=== PATIENT | male | born 2000 | race Caucasian/White ===

== ENCOUNTER 2020-10-23 14:42 | Emergency (ER) | payer OTHER, SELFPAY ==
[2020-10-23 15:10] VITALS: BP 116/70; PULSE 62; RESP 18; TEMP 37.1; O2SAT 98; BMI 21.9
--- NOTE | 2020-10-23 15:58 | ED.SKABFB ---
HPI - Skin/Abscess/Foreign Bdy General Chief complaint: Skin/Abscess/Foreign Body Stated complaint: rash Time Seen by Provider: 10/23/20 15:58 History of Present Illness HPI narrative: patient complains of a rash to his body mostly the chest and back but the arms as well which started 2 years ago and has spread over past 2 years, it does not itch it does not hurt and there are no other associated symptoms Related Data Previous Rx's Medication Instructions Recorded ketoconazole 1 appl TOPICAL BID #60 g 10/23/20 selenium sulfide 1 appl TOPICAL DAILY 7 Days #118 ml 10/23/20 Allergies Allergy/AdvReac Type Severity Reaction Status Date / Time No Known Allergies Allergy Unverified 01/10/20 16:51 Review of Systems Review of Systems: positive for rash Negatives are no fever no chills no headache no sore throat no difficulty breathing or swallowing no swelling no itching no pain no shortness of breath Yes all other systems are reviewed and are negative PMFSH Past Medical History Source: nursing notes reviewed Medical History (Updated 10/23/20 @ 16:02 by HAN José) No known health problems Social History Social History Advance Directives: No Advance Directives Information Provided: No Physical Exam Vital Signs: Vital Signs: Last Vital Signs Temp 98.7 F 10/23/20 15:10 Pulse 62 10/23/20 15:10 Resp 18 10/23/20 15:10 BP 116/70 10/23/20 15:10 Pulse Ox 98 10/23/20 15:10 Body Mass Index 21.9 general appearance is no distress, comfortable Head is normocephalic atraumatic The pharynx is clear Neck is is supple Chest is clear to auscultation bilateral Extremities full range of motion x4 Skin there is hypopigmented rash on the back and on the trunk some of it is circular and raised, there is no redness no warmth no tenderness no excoriations no petechiae no purpura , no vesicular lesions Neuro no focal deficit Course Course Course Narrative: rashes likely tinea versicolor or tinea corporis so patient is treated with ketoconazole and selenium sulfide Discharge Plan Discharge Clinical Impression: Tinea versicolor Patient Disposition: Home, Self-Care Additional Instructions: rash is likely a fungal infection so we are trying creams to see if they get rid of it If not better in 2-4 weeks return for further evaluation or follow with primary doctor Return any time any worse condition or any concerns Prescriptions: New ketoconazole 2 % cream 1 appl topical BID Qty: 60 RF: 0 selenium sulfide 2.5 % lotion 1 appl topical DAILY 7 Days Qty: 118 RF: 0
== END 2020-10-23 16:16 | disposition home or self-care (01) ==
PROVIDERS: Emergency Provider Emergency Medicine Emergency Medical Services
DX: B36.0 Pityriasis versicolor (principal)
CPT/HCPCS: 99282; 99283